=== PATIENT | male | born 1960 | race African-American/Black ===

== ENCOUNTER 2023-03-28 06:26 | Day surgery (SDC) | payer OTHER ==
[2023-03-28] VITALS (13 sets, daily range): BP systolic 110–138; BP diastolic 66–83; PULSE 67–97; TEMP 97.5–98.5
[~2023-03-28] VITALS: Ht 167.6 cm; Wt 76.4 kg
[~2023-03-28 06:26] MED LIST: Acetaminophen 500 MG TAB PO SCH; Celecoxib 200 MG CAP PO SCH; Gabapentin 100 MG CAP PO SCH; LR 1,000 ML IV SCH; NORCO 325 MG-51 TAB PO; ZOFRAN ODT4 MG PO
[2023-03-28] MEDS ORDERED: CRESTOR 10MG10 MG PO (07:05)
[2023-03-28] MEDS ORDERED: TYLENOL 8 HR PO (07:07)
--- NOTE | 2023-03-28 07:29 | NUR ---
0674 PT AMBULATORY TO BAY 1 WITH A STEADY GAIT, BREATHING EVEN AND UNLABORED. PT IS ALERT AND ORIENTED. CONSENTS REVIEWED AND SIGNED BY PT. IV ESTABLISHED. LR INFUSING VIA DIAL A FLOW AT 100 ML/HR. CALL LIGHT IN REACH. WARM BLANKET PROVIDED.
[2023-03-28] MEDS ORDERED: Atracurium 50 MG/5 ML VIAL IV ONE (07:54)
[2023-03-28] MEDS ORDERED: fentaNYL 50 MCG/ML 2 ML VIAL ONE (07:57)
[2023-03-28] MEDS ORDERED: oxyCODONE 5 MG TAB PO PRN ×2 (08:45)
[2023-03-28] MEDS ORDERED: LR 1,000 ML IV SCH (08:45)
[2023-03-28] MEDS ORDERED: Ketorolac 15 MG/ML VIAL IV SCH (08:45)
[2023-03-28] MEDS ORDERED: Naloxone 0.4 MG/ML VIAL IV PRN (08:45)
[2023-03-28] MEDS ORDERED: Morphine 4 MG/ML VIAL IV PRN (08:45)
[2023-03-28] MEDS ORDERED: Ondansetron 4 MG/2 ML VIAL IV PRN ×2 (08:45→09:15)
[2023-03-28] MEDS ORDERED: Hyoscyamine 0.125 MG Sublingual TAB SL PRN (08:45)
[2023-03-28] MEDS ORDERED: dexAMETHasone 10 MG/ML VIAL ONE (08:49)
[2023-03-28] MEDS ORDERED: diphenhydrAMINE 50 MG/ML 1 ML VIAL ONE (08:49)
[2023-03-28] MEDS ORDERED: Ondansetron 4 MG/2 ML VIAL ONE (08:49)
[2023-03-28] MEDS ORDERED: Sennosides/Docusate 8.6-50 MG TAB PO SCH (09:00)
[2023-03-28] MEDS ORDERED: droPERidol 2.5 MG/ML 2 ML VIAL IV PRN (09:15)
[2023-03-28] MEDS ORDERED: Meperidine 50 MG/ML 1 ML VIAL IV PRN (09:15)
[2023-03-28] MEDS ORDERED: fentaNYL 50 MCG/ML 2 ML VIAL IV PRN (09:15)
[2023-03-28] MEDS ORDERED: HYDROmorphone 2 MG/1 ML VIAL IV PRN (09:15)
[2023-03-28] MEDS ORDERED: Glycopyrrolate 0.2 MG/ML 1 ML VIAL ONE (09:21)
[2023-03-28] MEDS ORDERED: Topical Skin Adhesive 1 EACH (1 ML) TOP ONE (09:37)
[2023-03-28] MEDS ORDERED: ePHEDrine 50 MG/ML VIAL ONE (09:37)
[2023-03-28] MEDS ORDERED: LR 1,000 ML IV ONE (09:53)
[2023-03-28] MEDS ORDERED: ceFAZolin 1 G in Water For Injection,Sterile 10 ML IV SCH ×2 (12:33→16:00)
[2023-03-28] MEDS ORDERED: Acetaminophen 500 MG TAB PO SCH (13:15)
--- NOTE | 2023-03-28 14:18 | NUR ---
Pt to the floor from surgery. Pt is very sleepy, but does wake easily when spoken to. Pt does have family in the room. Lap sits to abd are all well approximated, no redness or drainage noted. Bowel sounds hypoactive at this time. Heart rate regular and upper lobes clear to auscultation. SCDs on bilaterally. IVF infusing to left FA IV.
[2023-03-28 15:12] LABS: CALCIUM 9.2 mg/dL (8.4-10.2); CREATININE, serum 1.11 mg/dL (0.72-1.25); POTASSIUM 3.9 mmol/L (3.5-4.5)
--- NOTE | 2023-03-28 15:32 | NUR ---
Pt doing well, Pain complaints 3/10 dull in abd. Scheduled pain medication given. Pt continues to have family present in the room. Educated on plan of care and post op diet. No other needs or questions
--- NOTE | 2023-03-28 16:35 | NUR ---
Pt does not yet have IS in the room RT, notified
--- NOTE | 2023-03-28 19:45 | NUR ---
report received from joanna durand. pt sitting in recliner finishing dinner. pt reports pain is at a tolerated 3.5/10. call light in reach. all needs met at this time.
[2023-03-28] MEDS ORDERED: Rosuvastatin 10 MG **** subs to Atorvastatin 20 MG PO SCH (21:00)
[2023-03-28] MEDS ORDERED: Atorvastatin 20 MG TAB PO SCH (21:00)
[2023-03-29] VITALS (7 sets, daily range): BP systolic 110–127; BP diastolic 62–71; PULSE 65–76; TEMP 97.8–98.5
--- NOTE | 2023-03-29 00:16 | NUR ---
shift assessment complete, see documentation. pt tolerated hs meds well. pt doing well with pain control. pt reporting pain at a steady 2-3 and reports scheduled toradol and tylenol are maintaining just fine. pt ambulating well sba. pt tolerated abx well. call light in reach. all needs met at this time.
[2023-03-29 07:22] LABS: BASO % 0.2 % (0.0-2.0); EOS % 0.2 % (0.0-4.0); GRAN # 8.7 K/mm3 (1.4-6.5); GRAN % 66.7 % (42.2-75.2); HEMOGLOBIN 11.8 g/dl (13.5-18.0); LYMPH # 3.2 K/mm3 (1.2-3.4); LYMPH % 24.8 % (20.0-51.0); MEAN CELL VOLUME 85 fl (80.0-100.0); MEAN CORPUSCULAR HEMOGLOBIN 28 pg (27-31); MEAN CORPUSCULAR HGB CONC 34 g/dl (33.0-37.0); MEAN PLATELET VOLUME 10.5 fl (7.4-10.4); MONO % 7.8 % (1.7-9.3); PLATELET COUNT 224 K/mm3 (130-400); RED BLOOD COUNT 4.16 M/mm3 (4.20-5.60); REDCELL DISTRIBUTION WIDTH-CV 15.1 % (11.5-14.5)
[2023-03-29 07:27] LABS: HEMATOCRIT 35.2 % (42.0-52.0)
--- NOTE | 2023-03-29 07:30 | NUR ---
Pt doing well this morning. He reports pain is tolerable, 3/10. Pt tolerating general diet with no issues. No questions, will continue to monitor
--- NOTE | 2023-03-29 10:00 | NUR ---
Patient ambulates in [place] with SBA. Tolerated well. Duque to dependent drainage flowing krish colored urine. Output QS. IV fluids heplocked.
--- NOTE | 2023-03-29 10:19 | NUR ---
PT doing well. He has been up walking in the halls. Pain tolerable with scheduled medications. No complaints of nausea.
--- NOTE | 2023-03-29 10:36 | NUR ---
Application Architect met with patient to discuss discharge planning. Patient lives alone in [place] and sees Dr. Hollis for primary care. Patient obtains medications from [facility] with no difficulties. Patient does not have any DME and is independent with [facility]LS. Patient does not have DPOA-HC completed but was interested in the form, which SW provided. Patient advised he plans to return home at time of discharge. Discharge Plan; Home
--- NOTE | 2023-03-29 13:15 | NUR ---
Initial visit; Patient thanked Storage Consultant for stopping by and offering God's blessings and Spiritual Care. Patient stated he was doing a bit better and asked that Storage Consultant might keep him in her prayers. Storage Consultant will thankfully do so.
--- NOTE | 2023-03-29 13:56 | NUR ---
Reviewed discharge instructions with pt and family. Reviewed catheter care and well as post op care at home. INT removed from left forearm. Asked for pt to notify nursing when he is ready to be escorted out
== END 2023-03-29 14:30 | disposition home or self-care (01) ==
LOC: SDCO 06:26 → SURG 13:45 → SDCO 03-29 14:30
PROVIDERS: Urology
DX: C61 Malignant neoplasm of prostate (principal); F17.210 Nicotine dependence, cigarettes, uncomplicated
CPT/HCPCS: OP; A4314; A9284; J0690; J1100; J1170; J1200; J1885; J2405; J2704; J3010; J7120